=== PATIENT | female | born 1980 | race Caucasian/White ===

== ENCOUNTER 2017-04-06 16:45 | Outpatient (RCR) | payer BC ==
[~2017-04-06 16:45] MED LIST: LORTAB 5/500 501 TAB PO; PRENATAL1 TA2 PO; ZOFRAN 4MG T4 MG/TAB PO
== END 2017-05-05 15:08 ==
LOC: WSPT 16:45
DX: S93.422D Sprain of deltoid ligament of left ankle, subsequent encounter (principal); S93.492D Sprain of other ligament of left ankle, subsequent encounter

== ENCOUNTER 2018-02-02 07:49 | Outpatient (RCR) | payer BC | END 2018-03-03 07:32 | disposition home or self-care (01) | LOC: WSPT 07:49 | DX: M25.511 Pain in right shoulder (principal); M62.838 Other muscle spasm ==

== ENCOUNTER → 2018-02-14 | Outpatient (CLI) | payer BC | LOC: MC.RAD 06:52 | DX: Z12.31 Encounter for screening mammogram for malignant neoplasm of breast (principal) ==

== ENCOUNTER → 2019-01-04 | Outpatient (CLI) | payer BC | LOC: MC.RAD 15:28 | DX: Z12.31 Encounter for screening mammogram for malignant neoplasm of breast (principal) ==

== ENCOUNTER → 2019-09-06 | Outpatient (CLI) | payer BC | LOC: COL.VAS 09:57 | DX: I49.3 Ventricular premature depolarization (principal); R00.2 Palpitations; R07.9 Chest pain, unspecified ==

== ENCOUNTER → 2020-09-22 | Outpatient (CLI) | payer BC | LOC: MC.RAD 10:13 | DX: Z12.31 Encounter for screening mammogram for malignant neoplasm of breast (principal) ==

== ENCOUNTER → 2021-07-13 | Outpatient (CLI) | payer BC | LOC: MC.RAD 09:00 | DX: N63.20 Unspecified lump in the left breast, unspecified quadrant (principal) ==

== ENCOUNTER 2022-01-15 20:33 | Emergency (ER) | payer BC ==
[~2022-01-15] VITALS: Ht 170.2 cm; Wt 63.6 kg
[2022-01-15 20:38] VITALS: TEMP 98.5
[2022-01-15 22:45] VITALS: BP 134/91; PULSE 81
== END 2022-01-15 22:50 | disposition home or self-care (01) ==
LOC: COL.ER 20:33
DX: G43.909 Migraine, unspecified, not intractable, without status migrainosus (principal)
CPT/HCPCS: J1200; J1885; J2765; J7030

== ENCOUNTER → 2022-01-19 | Outpatient (CLI) | payer BC | LOC: MC.RAD 06:46 | DX: Z12.31 Encounter for screening mammogram for malignant neoplasm of breast (principal) ==

== ENCOUNTER → 2022-01-22 | Outpatient (CLI) | payer BC | LOC: MC.RAD 10:50 | DX: N64.89 Other specified disorders of breast (principal) ==